=== PATIENT | male | born 1955 | race Caucasian/White ===

== ENCOUNTER 2017-02-05 19:37 | Emergency (ER) | payer OTHER ==
[~2017-02-05] VITALS: Ht 167.6 cm; Wt 92.5 kg
[2017-02-05 19:49] VITALS: Ht 167.6 cm; Wt 92.5 kg
--- NOTE | 2017-02-05 20:50 | ERD ---
ER Documentation Chief Complaint Date/Time DATE: 02/05/17 TIME: 20:45 Chief Complaint cough x2 months HPI This is a 62-year-old male who presents to the emergency department today with his friend for a cough for the past 3 months. According to the friend patient indicated that he was in [facility] until August. States he has tried over- the-counter cough medicines however he is unsure what it was that he took. Denies any chest pain, shortness of breath, fevers or chills. He does state the cough is worse at night. He states that he also has had some bleeding from his nose when he coughs however denies any coughing up of blood. Denies any sick contacts. Denies cigarette smoking ROS All systems reviewed and are negative except as per history of present illness. Medications Home Meds Active Scripts Cetirizine Hcl* (Zyrtec*) 10 Mg Capsule, 10 MG PO DAILY, #14 TAB.CHEW Prov:ANTOINETTE VASQUEZ PA-C 02/05/17 Sodium Chloride (Saline Nasal Mist) 126 Ml Mist, 2 SPRAY NASAL BID, #1 BOTTLE Prov:ANTOINETTE VASQUEZ PA-C 02/05/17 Guaifenesin-Dextromethorphan* (Robitussin* DM) 100MG/10MG/5ML Syrup, 10 ML PO Q4H Y for COUGH for 5 Days, ML Prov:ANTOINETTE VASQUEZ PA-C 02/05/17 Albuterol Sulfate* (Proair HFA*) 8.5 Gm Hfa.aer.ad, 2 PUFF INH Q4, #1 INHALER Prov:ANTOINETTE VASQUEZ PA-C 02/05/17 Azithromycin* (Zithromax*) 250 Mg Tablet, 250 MG PO .ZPACK DIRECTED, #6 TAB TAKE 500 MG (2 TABS) THE FIRST DAY THEN 250 MG (1 TAB) DAYS 2-5 Prov:ANTOINETTE VASQUEZ PA-C 02/05/17 Allergies Allergies: Coded Allergies: No Known Allergy (Unverified , 02/05/17) PMhx/Soc Medical and Surgical Hx: pt denies Medical Hx, pt denies Surgical Hx Hx Alcohol Use: No Hx Substance Use: No Hx Tobacco Use: No Physical Exam Vitals Vital Signs Date Time Temp Pulse Resp B/P Pulse Ox O2 Delivery O2 Flow Rate FiO2 02/05/17 19:49 98.8 104 20 156/92 96 Physical Exam Const: No acute distress Head: Atraumatic Eyes: Normal Conjunctiva ENT: Ears TMs normal. Nose no drainage. Throat no erythema no exudate. Teeth with poor dentition and evidence of black residue on tongue and teeth Neck: Full range of motion..~ No meningismus. Resp: Mild coarse breath sounds right side upper lung aguilera. Left side clear to auscultation Cardio: Regular rate and rhythm, no murmurs Abd: Soft, non tender, non distended. Normal bowel sounds Skin: No petechiae or rashes Back: No midline or flank tenderness Ext: No cyanosis, or edema. Nontender bilateral Neur: Awake and alert Psych: Normal Mood and Affect Results 24 hrs DIAGNOSTIC IMAGING REPORT Patient: CURT ALVARENGA : 1955 Age: 62 Sex: M MR #: [id number] DOS: 02/05/17 0000 Ordering MD: ANTOINETTE VASQUEZ PA-C Location: [facility] Room/Bed: PROCEDURE: XR Chest. CLINICAL INDICATION: Cough for 3 months. TECHNIQUE: Single frontal view of the chest was obtained COMPARISON: None FINDINGS: Mild cardiomegaly. The lungs are clear. Linear lucency over left neck base to the is nonspecific. There is no pleural effusion or pneumothorax. IMPRESSION: No acute disease. RPTAT: [facility] Physician Xiomy Date Time Electronically viewed and signed by Physician Xiomy on 02/05/2017 21:25 RS/ CC: ANTOINETTE VASQUEZ PA-C Procedures/[facility] This 62-year-old male who presents to the emergency department today complaining of cough for the past 3 months. Patient denied any medical problems and he denies any chest pain, shortness of breath fevers or coughing up blood however given patient's age and duration of symptoms I did obtain a chest x-ray Chest x-ray shows no acute disease. There is no pleural effusion or pneumothorax. Lungs are clear. Patient was slightly tachycardic however his oxygen saturation is 96%. He is afebrile and otherwise well-appearing. He has no calf pain. Low suspicion for pneumonia, PE, abscess, pleural effusion. Patient symptoms may also be allergy related given the duration of symptoms that the cough is worse at night. Low suspicion for pertussis patient does not appear to have a persistent cough. Upon questioning of the patient's black tongue and teeth residue friend notified me that patient had been chewing on beetle leaf. Patient did have some mild coarse breath sounds on the right side. I will give the patient a prescription for azithromycin to treat possible bronchitis. . Also give the patient a prescription for pro-air inhaler, Robitussin and Zyrtec and nasal saline. Discussed the patient and x ray finding with Dr. Duran and x rays of linear lucency he recommended patient get repeat follow-up chest x-ray in 2 months. I have explained this to the patient and friend. Departure Diagnosis: Primary Impression: Cough Condition: Fair ANTOINETTE VASQUEZ PA-C February 05, 2017 20:50
--- NOTE | 2017-02-05 21:25 | RADRPT ---
PROCEDURE: XR Chest. CLINICAL INDICATION: Cough for 3 months. TECHNIQUE: Single frontal view of the chest was obtained COMPARISON: None FINDINGS: Mild cardiomegaly. The lungs are clear. Linear lucency over left neck base to the is nonspecific. There is no pleural effusion or pneumothorax. IMPRESSION: No acute disease. RPTAT: [facility] Physician Xiomy Date Time Electronically viewed and signed by Sven Hackett Physician on 02/05/2017 21:25 RS/
[2017-02-05] MEDS ORDERED: ALBU8.5H3 INH (21:41)
[2017-02-05] MEDS ORDERED: UDROBDM PO (21:41)
[2017-02-05] MEDS ORDERED: AZIT250T94 PO (21:41)
[2017-02-05] MEDS ORDERED: CETI10CA PO (21:42)
[2017-02-05] MEDS ORDERED: SODI126M NASAL (21:42)
== END 2017-02-05 21:53 | disposition home or self-care (01) ==
LOC: FTE 19:37
DX: R05 Cough (principal)
CPT/HCPCS: 71010; Z7502

== ENCOUNTER 2017-12-22 07:09 | Day surgery (SDC) | END 2017-12-22 12:41 | disposition home or self-care (01) ==